=== PATIENT | female | born 1970 | race Caucasian/White ===

== ENCOUNTER 2017-10-10 20:30 | Emergency (ER) | payer OTHER ==
[~2017-10-10] VITALS: Ht 162.6 cm; Wt 85.0 kg
[~2017-10-10 20:30] MED LIST: ALBU17AE27 IH; FAMO20 PO; OXYC-530 PO; URSO300C4 PO
[2017-10-10] MEDS ORDERED: PREG75 PO (20:40)
[2017-10-10] MEDS ORDERED: BACL10TA PO (20:40)
[2017-10-10] MEDS ORDERED: GABA-533 PO (20:40)
[2017-10-10] MEDS ORDERED: TRAM50TA4 PO (20:40)
[2017-10-10] MEDS ORDERED: HYDR50CA10 PO (20:40)
[2017-10-10] MEDS ORDERED: FLUO-191 PO (20:40)
[2017-10-10] MEDS ORDERED: KETOROLAC TROMETHAMINE 60 MG/2 ML VIAL IM ONE (22:00)
[2017-10-10] MEDS ORDERED: BUPIVACAINE HCL/PF 0.25% 10 ML VIAL INJ ONE (22:00)
[2017-10-10] MEDS ORDERED: BACITRACIN 0.9 GM PACKET OINTMENT TP ONE (23:15)
[2017-10-10 23:34] VITALS: BP 129/77
== END 2017-10-10 23:51 | disposition home or self-care (01) ==
LOC: EMS 20:30
DX: L03.031 Cellulitis of right toe (principal); L03.113 Cellulitis of right upper limb; B86 Scabies; I10 Essential (primary) hypertension; E78.00 Pure hypercholesterolemia, unspecified
CPT/HCPCS: 10060; 96372; 99283; J1885; J3490

== ENCOUNTER 2021-07-05 15:33 | Emergency (ER) | payer OTHER ==
[~2021-07-05] VITALS: Ht 152.4 cm; Wt 61.4 kg
[~2021-07-05 15:33] MED LIST changes: -OXYC-530 PO; -URSO300C4 PO
[2021-07-05] MEDS ORDERED: HALOPERIDOL LACTATE 5 MG/ML VIAL IM ONE (15:45)
[2021-07-05] MEDS ORDERED: LORazepam 2 MG/ML VIAL IM ONE (15:45)
[2021-07-05] MEDS ORDERED: DiphenhydrAMINE HCL 50 MG/ML VIAL IM ONE (15:45)
[2021-07-06 06:26] VITALS: BP 127/83
== END 2021-07-06 06:29 | disposition home or self-care (01) ==
LOC: EMS 15:33
DX: R41.82 Altered mental status, unspecified (principal); F15.10 Other stimulant abuse, uncomplicated; F11.19 Opioid abuse with unspecified opioid-induced disorder; M19.90 Unspecified osteoarthritis, unspecified site; E78.00 Pure hypercholesterolemia, unspecified; I10 Essential (primary) hypertension; J45.909 Unspecified asthma, uncomplicated; G83.9 Paralytic syndrome, unspecified; F41.9 Anxiety disorder, unspecified; R45.1 Restlessness and agitation; R25.3 Fasciculation; Z86.69 Personal history of other diseases of the nervous system and sense organs; Z98.890 Other specified postprocedural states
CPT/HCPCS: 96372; 99284; J1200; J1630; J2060